=== PATIENT | female | born 1945 | race Caucasian/White ===

== ENCOUNTER → 2016-11-29 | Outpatient (CLI) | payer MEDICARE ==
[~2016-11-29] MED LIST: GADOBUTROL 10 MMOL/10 ML PFS ONE
== END | disposition home or self-care (01) ==
LOC: CFH 07:31
PROVIDERS: ATTEND Psychiatry & Neurology Neurology
DX: G31.9 Degenerative disease of nervous system, unspecified (principal)
CPT/HCPCS: 70553; 82565; A9585

== ENCOUNTER → 2020-11-21 | Outpatient (CLI) | payer MEDICARE | END | disposition home or self-care (01) | LOC: LAB 09:42 | PROVIDERS: ATTEND Psychiatry & Neurology Neurology | DX: Z51.81 Encounter for therapeutic drug level monitoring (principal) | CPT/HCPCS: 36415; 86480 ==

== ENCOUNTER 2021-01-07 17:50 | Inpatient (IN) | payer MEDICARE ==
[~2021-01-07] VITALS: Ht 177.8 cm; Wt 89.1 kg
--- NOTE | 2021-01-07 17:59 | NUR ---
CARLIN from home, pt with hx of MS says she felt generalized weakness for several days says she got down on the floor to lay down and couldn't get back up. Pt had been crawling around on the ground, urinating and deficating on self for 2 days. Pt says she was able to crawl to her life alert on dresser and call 911. Bilat knee abrasions. EKG done on arrival. Refused IV. BG 147. Pt was completely undressed, all wet/soiled clothing removed from pt. No covid vaccine, no smoking, no drinking, no drugs.
[2021-01-07] MEDS ORDERED: SODIUM CHLORIDE 0.9% 1,000ML IVBOLUS ONE (18:30)
[2021-01-07] MEDS ORDERED: PLEASE ENTER ALLERGIES MC SCH (18:30)
[2021-01-07 18:40] LABS: BASOPHILS % (AUTO) 0 % (0-1); EOSINOPHILS % (AUTO) 1 % (1-7); LYMPHOCYTES % (AUTO) 18 % (22-44); MEAN CORPUSCULAR HEMOGLOBIN 30.9 pg (27.0-34.8); MEAN CORPUSCULAR HGB CONC 33.6 g/dL (32.4-35.8); MEAN PLATELET VOLUME 7.6 fL (7.4-10.4); MONOCYTES % (AUTO) 10 % (2-9); NEUTROPHILS % (AUTO) 71 % (42-75); PLATELET COUNT 298 x10^3/uL (130-400); RED BLOOD COUNT 4.58 x10^6/uL (3.82-5.3); RED CELL DISTRIBUTION WIDTH 14.2 % (9.6-15.2)
[2021-01-07 18:51] LABS: ALANINE AMINOTRANSFERASE 52 U/L (12-78); ALBUMIN 2.8 g/dL (3.4-5.0); ANION GAP 9 mmol/L (5-15); CHLORIDE 102 mmol/L (98-107); CREATININE 1.33 mg/dL (0.55-1.02)
--- NOTE | 2021-01-07 18:51 | NUR ---
Report from Rafaela DIANE
--- NOTE | 2021-01-07 18:51 | NUR ---
Report to BENEDICTO garcia
[2021-01-07 18:55] LABS: ALKALINE PHOSPHATASE 84 U/L (45-117); BILIRUBIN,TOTAL 1.7 mg/dL (0.2-1.0); TOTAL PROTEIN 7.1 g/dL (6.4-8.2); TROPONIN I 0.018 ng/mL (0.000-0.045)
--- NOTE | 2021-01-07 19:37 | NUR ---
Pt kailee cathed per MD order, pt tolerated well. Walked sample to lab.
[2021-01-07 19:55] LABS: MICROSCOPIC INDICATED
[2021-01-07] MEDS ORDERED: SODIUM CHLORIDE 0.9% 1,000 ML IV ONE (20:00)
--- NOTE | 2021-01-07 20:00 | NUR ---
Report to Tatiana DIANE
[2021-01-07] MEDS ORDERED: LACTATED RINGERS 1,000 ML IV SCH (22:30)
[2021-01-07] MEDS ORDERED: ACETAMINOPHEN 325 MG TABLET PO PRN (22:30)
[2021-01-07] MEDS ORDERED: hydrALAzine 20 MG/ML, 1ML IVPush PRN (22:30)
[2021-01-07] MEDS ORDERED: ONDANSETRON 2MG/ML, 2ML IVPush PRN (22:30)
[2021-01-07] MEDS ORDERED: HYDROcodone/APAP 5/325 TABLET PO PRN (22:30)
[2021-01-07] MEDS: HEPARIN 5,000 UNITS/ML, 1ML SQ SCH (22:30)
[2021-01-07] MEDS ORDERED: CEFTRIAXONE 1,000 MG IM SCH (23:00)
[2021-01-07] MEDS ORDERED: CEFTRIAXONE 1,000 MG in DEXTROSE 5% 50 ML IVPB SCH (23:30)
[2021-01-08 00:09] VITALS: BP 144/84
[2021-01-08 00:10] LABS: BASOPHILS % (AUTO) 1 % (0-1); EOSINOPHILS % (AUTO) 1 % (1-7); LYMPHOCYTES % (AUTO) 21 % (22-44); MEAN CORPUSCULAR HEMOGLOBIN 31.5 pg (27.0-34.8); MEAN PLATELET VOLUME 7.6 fL (7.4-10.4); MONOCYTES % (AUTO) 8 % (2-9); NEUTROPHILS % (AUTO) 69 % (42-75); PLATELET COUNT 268 x10^3/uL (130-400); RED BLOOD COUNT 4.33 x10^6/uL (3.82-5.3); RED CELL DISTRIBUTION WIDTH 14.1 % (9.6-15.2)
[2021-01-08] MEDS: HEPARIN 5,000 UNITS/ML, 1ML SQ SCH ×3 (00:56→21:17)
[2021-01-08 06:49] VITALS: BP 133/79
[2021-01-08 06:51] LABS: ALBUMIN 2.1 g/dL (3.4-5.0); ANION GAP 7 mmol/L (5-15); CALCIUM 9.1 mg/dL (8.5-10.1); CHLORIDE 105 mmol/L (98-107)
[2021-01-08 06:54] LABS: ALANINE AMINOTRANSFERASE 43 U/L (12-78); ALKALINE PHOSPHATASE 69 U/L (45-117); BILIRUBIN,TOTAL 1.5 mg/dL (0.2-1.0); TOTAL PROTEIN 5.8 g/dL (6.4-8.2)
[2021-01-08] MEDS ORDERED: POTASSIUM CHLORIDE 20 MEQ TAB.ER.PRT PO ONE (11:30)
[2021-01-08 12:09] VITALS: BP 145/84
[2021-01-08] MEDS: CEFTRIAXONE 2 GM in DEXTROSE 5% 50 ML IVPB SCH (13:07)
[2021-01-08] MEDS: SODIUM CHLORIDE 0.9% 1,000 ML IV SCH (13:08)
[2021-01-08 20:23] VITALS: BP 132/86
[2021-01-09 00:19] VITALS: BP 144/84
[2021-01-09] MEDS: SODIUM CHLORIDE 0.9% 1,000 ML IV SCH ×3 (04:11→23:49)
[2021-01-09] MEDS: HEPARIN 5,000 UNITS/ML, 1ML SQ SCH ×3 (04:54→22:30)
[2021-01-09 08:16] VITALS: BP 154/91
[2021-01-09 09:14] LABS: ANION GAP 5 mmol/L (5-15); CALCIUM 9.2 mg/dL (8.5-10.1); CHLORIDE 110 mmol/L (98-107); CREATININE 0.89 mg/dL (0.55-1.02)
[2021-01-09] MEDS: CEFTRIAXONE 2 GM in DEXTROSE 5% 50 ML IVPB SCH (11:38)
[2021-01-09 13:04] VITALS: BP 165/92
[2021-01-09 19:37] VITALS: BP 168/76
[2021-01-10 00:15] VITALS: BP 171/78
[2021-01-10 01:43] VITALS: BP 154/87
[2021-01-10] MEDS: HEPARIN 5,000 UNITS/ML, 1ML SQ SCH ×3 (04:47→22:28)
[2021-01-10 07:44] VITALS: BP 165/83
[2021-01-10 09:20] LABS: ANION GAP 5 mmol/L (5-15); CALCIUM 9.1 mg/dL (8.5-10.1); CHLORIDE 108 mmol/L (98-107)
[2021-01-10 09:21] LABS: CREATININE 0.76 mg/dL (0.55-1.02)
[2021-01-10] MEDS: SODIUM CHLORIDE 0.9% 1,000 ML IV SCH ×2 (10:00→20:19)
[2021-01-10] MEDS: CEFTRIAXONE 2 GM in DEXTROSE 5% 50 ML IVPB SCH (11:15)
[2021-01-10 13:13] VITALS: BP 162/99
[2021-01-10] MEDS ORDERED: POTASSIUM CHLORIDE 20 MEQ TAB.ER.PRT PO ONE (14:00)
[2021-01-10] MEDS: INSULIN LISPRO 100 UNITS/ML, PEN SQ-INSULIN SCH ×2 (16:14→20:25)
[2021-01-10 18:58] VITALS: BP 155/77
[2021-01-11 00:31] VITALS: BP 166/90
[2021-01-11 06:26] LABS: ANION GAP 6 mmol/L (5-15); BASOPHILS % (AUTO) 0 % (0-1); CALCIUM 9.9 mg/dL (8.5-10.1); CHLORIDE 109 mmol/L (98-107); EOSINOPHILS % (AUTO) 0 % (1-7); LYMPHOCYTES % (AUTO) 7 % (22-44); MEAN CORPUSCULAR HEMOGLOBIN 30.8 pg (27.0-34.8); MEAN CORPUSCULAR HGB CONC 33.1 g/dL (32.4-35.8); MEAN PLATELET VOLUME 7.7 fL (7.4-10.4); MONOCYTES % (AUTO) 1 % (2-9); NEUTROPHILS % (AUTO) 92 % (42-75); PLATELET COUNT 217 x10^3/uL (130-400); RED CELL DISTRIBUTION WIDTH 14.1 % (9.6-15.2)
[2021-01-11] MEDS: HEPARIN 5,000 UNITS/ML, 1ML SQ SCH ×3 (06:30→22:30)
[2021-01-11 07:30] VITALS: BP 168/72
[2021-01-11] MEDS: INSULIN LISPRO 100 UNITS/ML, PEN SQ-INSULIN SCH ×4 (07:53→20:16)
[2021-01-11] MEDS ORDERED: GABA300S PO (09:40)
[2021-01-11] MEDS: CEFTRIAXONE 2 GM in DEXTROSE 5% 50 ML IVPB SCH (12:04)
[2021-01-11 13:21] VITALS: BP 158/70
[2021-01-11] MEDS ORDERED: BENA20TA5 PO (13:31)
[2021-01-11] MEDS ORDERED: AMLO-210 PO (13:31)
[2021-01-11 18:37] VITALS: BP 166/85
[2021-01-11] MEDS ORDERED: LORazepam 2 MG/ML, 1ML IVPush ONE (19:00)
[2021-01-11] MEDS: GABAPENTIN 300 MG CAPSULE PO SCH (20:11)
[2021-01-12 00:52] VITALS: BP 151/80
[2021-01-12 05:47] LABS: ANION GAP 6 mmol/L (5-15); CALCIUM 10.3 mg/dL (8.5-10.1); CHLORIDE 107 mmol/L (98-107); CREATININE 1.13 mg/dL (0.55-1.02)
[2021-01-12] MEDS: HEPARIN 5,000 UNITS/ML, 1ML SQ SCH ×3 (06:30→22:30)
[2021-01-12] MEDS: INSULIN LISPRO 100 UNITS/ML, PEN SQ-INSULIN SCH ×4 (07:34→23:14)
[2021-01-12 07:56] VITALS: BP 155/80
[2021-01-12] MEDS: AMLODIPINE 5 MG TABLET PO SCH (09:53)
[2021-01-12] MEDS: GABAPENTIN 300 MG CAPSULE PO SCH ×3 (09:53→21:00)
[2021-01-12] MEDS: BENAZEPRIL 20 MG TABLET PO SCH (09:53)
[2021-01-12] MEDS: CEFTRIAXONE 2 GM in DEXTROSE 5% 50 ML IVPB SCH (11:50)
[2021-01-12 12:37] VITALS: BP 129/79
[2021-01-12] MEDS ORDERED: LORazepam 2 MG/ML, 1ML IVPush ONE (17:00)
[2021-01-12] MEDS ORDERED: GADOTERATE 10 MMOL/20ML SYR ONE (18:19)
[2021-01-12 20:27] VITALS: BP 151/88
[2021-01-12] MEDS: PANTOPRAZOLE 40MG TABLET PO SCH (20:41)
[2021-01-13 00:11] VITALS: BP 121/71
[2021-01-13] MEDS: SODIUM CHLORIDE 0.9% 1,000 ML IV SCH ×2 (02:50→14:00)
[2021-01-13 05:46] LABS: BASOPHILS % (AUTO) 0 % (0-1); EOSINOPHILS % (AUTO) 0 % (1-7); LYMPHOCYTES % (AUTO) 7 % (22-44); MEAN CORPUSCULAR HEMOGLOBIN 31.3 pg (27.0-34.8); MEAN PLATELET VOLUME 7.6 fL (7.4-10.4); MONOCYTES % (AUTO) 4 % (2-9); NEUTROPHILS % (AUTO) 90 % (42-75); PLATELET COUNT 219 x10^3/uL (130-400); RED BLOOD COUNT 3.61 x10^6/uL (3.82-5.3); RED CELL DISTRIBUTION WIDTH 14.4 % (9.6-15.2)
[2021-01-13 05:58] LABS: ALANINE AMINOTRANSFERASE 35 U/L (12-78); ALBUMIN 1.8 g/dL (3.4-5.0); ANION GAP 5 mmol/L (5-15); CALCIUM 9.3 mg/dL (8.5-10.1); CHLORIDE 110 mmol/L (98-107)
[2021-01-13 06:01] LABS: ALKALINE PHOSPHATASE 62 U/L (45-117); BILIRUBIN,TOTAL 0.4 mg/dL (0.2-1.0); CREATININE 0.74 mg/dL (0.55-1.02); TOTAL PROTEIN 5.2 g/dL (6.4-8.2)
[2021-01-13] MEDS: HEPARIN 5,000 UNITS/ML, 1ML SQ SCH ×2 (06:30→14:09)
[2021-01-13] MEDS: PANTOPRAZOLE 40MG TABLET PO SCH (06:32)
[2021-01-13] MEDS: AMLODIPINE 5 MG TABLET PO SCH (08:17)
[2021-01-13] MEDS: GABAPENTIN 300 MG CAPSULE PO SCH (08:17)
[2021-01-13] MEDS: BENAZEPRIL 20 MG TABLET PO SCH (08:17)
[2021-01-13] MEDS: INSULIN LISPRO 100 UNITS/ML, PEN SQ-INSULIN SCH ×2 (08:25→10:58)
[2021-01-13 08:27] VITALS: BP 150/76
[2021-01-13] MEDS ORDERED: INSULIN GLARGINE 100 UNITS/ML, PEN SQ-INSULIN SCH (09:00)
[2021-01-13] MEDS: CEFTRIAXONE 2 GM in DEXTROSE 5% 50 ML IVPB SCH (10:59)
[2021-01-13] MEDS ORDERED: INSU100I11 SQ-INSULIN (13:05)
[2021-01-13] MEDS ORDERED: PANT40TA6 PO (13:15)
[2021-01-13] MEDS ORDERED: PRED10TA PO (13:15)
[2021-01-13 13:54] VITALS: BP 146/74
[2021-01-13] MEDS ORDERED: CEFD300C37 PO (15:08)
== END 2021-01-13 16:15 | disposition home health service (06) | DRG 58 ==
LOC: ED 18:00 → EDIP 19:32 → 3N 20:14
PROVIDERS: ADMIT Internal Medicine; ATTEND Internal Medicine
DX: G35 Multiple sclerosis (principal); N17.1 Acute kidney failure with acute cortical necrosis; N39.0 Urinary tract infection, site not specified; R64 Cachexia; J06.9 Acute upper respiratory infection, unspecified; Z20.822 Contact with and (suspected) exposure to COVID-19; L27.0 Generalized skin eruption due to drugs and medicaments taken internally; B96.1 Klebsiella pneumoniae [K. pneumoniae] as the cause of diseases classified elsewhere; E87.6 Hypokalemia; E86.9 Volume depletion, unspecified; E86.0 Dehydration; Z68.28 Body mass index [BMI] 28.0-28.9, adult; Z82.49 Family history of ischemic heart disease and other diseases of the circulatory system; Z83.6 Family history of other diseases of the respiratory system; Z87.440 Personal history of urinary (tract) infections
CPT/HCPCS: 36415; 70553; 71045; 72156; 72157; 80048; 80053; 81001; 82962; 83036; 83615; 83735; 84100; 84145; 84443; 84484; 85025; 85379; 87040; 87077; 87086; 87186; 93005; 99285; G0378; J0696; J2930; U0005; A9575; J0360; J1815; J2060; J7030; J7120; J7512; U0003

== ENCOUNTER 2021-01-27 17:26 | Emergency (ER) | payer MEDICARE ==
[~2021-01-27] VITALS: Ht 177.8 cm; Wt 85.6 kg
[~2021-01-27 17:26] MED LIST changes: +AMLO-210 PO; +BENA20TA5 PO; +CEFD300C37 PO; +GABA300S PO; -GADOBUTROL 10 MMOL/10 ML PFS ONE; +INSU100I11 SQ-INSULIN; +PANT40TA6 PO; +PRED10TA PO
[2021-01-27 19:11] LABS: BASOPHILS % (AUTO) 1 % (0-1); EOSINOPHILS % (AUTO) 6 % (1-7); LYMPHOCYTES % (AUTO) 24 % (22-44); MEAN CORPUSCULAR HEMOGLOBIN 32.1 pg (27.0-34.8); MEAN CORPUSCULAR HGB CONC 33.8 g/dL (32.4-35.8); MEAN PLATELET VOLUME 7.4 fL (7.4-10.4); MONOCYTES % (AUTO) 8 % (2-9); NEUTROPHILS % (AUTO) 60 % (42-75); PLATELET COUNT 184 x10^3/uL (130-400); RED BLOOD COUNT 3.82 x10^6/uL (3.82-5.3); RED CELL DISTRIBUTION WIDTH 16.1 % (9.6-15.2)
[2021-01-27 19:24] LABS: ANION GAP 5 mmol/L (5-15); CALCIUM 9.5 mg/dL (8.5-10.1); CHLORIDE 106 mmol/L (98-107); CREATININE 0.68 mg/dL (0.55-1.02)
--- NOTE | 2021-01-27 20:29 | NUR ---
WHEELED TO ROOM FROM LOBBY. ANAT.
--- NOTE | 2021-01-27 20:43 | NUR ---
PT TO ROOM WITH FRIEND, PT HAS HISTORY OF MS, NOTES THAT SHE WAS RECENTLY IN THE HOSPITAL, 01/13/21, WAS ADMITTED AFTER BEING DOWN FOR THREE DAYS AT HOME, ADMITTED FOR UTI, PT NOTES THAT HER LEG WAS SWOLLEN THEN, N OTES THAT IN SURGERY THEY WERE MORE CONCERNED ABOUT SOME CHANGES WITH HER MS, INITITAL DIAGNOSIS 1978 OF MS. HOME HEALTH VISITOR TODAY TRIED TO GET HOME US DONE, THIS WAS UNSUCCESSFUL.
[2021-01-27 20:48] VITALS: BP 140/80
[2021-01-27] MEDS ORDERED: RIVAROXABAN 15 MG TABLET PO ONE (21:30)
[2021-01-27] MEDS ORDERED: APIXABAN 5 MG TABLET PO ONE (21:30)
--- NOTE | 2021-01-27 22:14 | NUR ---
Patient given discharge instructions and they have confirmed that they understand the instructions. Patient wheeled to dc desk with friend to drive home. NAD, all questions answered appropriately, denies additional needs at this time. No personal belongings left in room after discharge.
== END 2021-01-27 22:15 | disposition home or self-care (01) ==
LOC: ED 17:31
DX: I82.412 Acute embolism and thrombosis of left femoral vein (principal); I82.432 Acute embolism and thrombosis of left popliteal vein; R00.0 Tachycardia, unspecified
CPT/HCPCS: 36415; 80048; 82040; 85025; 93970; 99284